=== PATIENT | male | born 1990 | race Caucasian/White ===

== ENCOUNTER 2021-07-13 17:12 | Emergency (ER) | payer BC, OTHER ==
[~2021-07-13] VITALS: Ht 177.8 cm; Wt 72.7 kg
[2021-07-13] MEDS ORDERED: NS 1,000 ML IV ONE (18:10)
[2021-07-13] MEDS ORDERED: levETIRAcetam INJection 1,000 MG in D5W 100 ML IV ONE (18:20)
[2021-07-13] MEDS ORDERED: KEPP1TAB2 PO (18:35)
[2021-07-13 18:44] LABS: BASO # 0.1 10^3/uL (0.0-0.2); BASO % 0.9 % (0.0-1.0); EOS # 0.4 10^3/uL (0.0-0.5); EOS % 2.8 % (0.0-3.0); HEMOGLOBIN 15.2 g/dl (13.5-17.5); LYMPH % 15.1 % (24.0-44.0); MEAN CORPUSCULAR HGB CONC 34.5 g/dl (32.0-36.5); MONO % 7.7 % (2.0-8.0); NEUTROPHILS # 9.6 10^3/uL (1.5-8.5); NEUTROPHILS % 72.3 % (36.0-66.0); PLATELET COUNT, AUTOMATED 271 10^3/uL (150-450); RED BLOOD COUNT 5.24 10^6/uL (4.30-6.10); WHITE BLOOD COUNT 13.3 10^3/uL (4.0-10.0)
[2021-07-13 19:05] LABS: BLOOD UREA NITROGEN 15 MG/DL (7-18); CALCIUM LEVEL 9.5 MG/DL (8.5-10.1); CARBON DIOXIDE LEVEL 26 MEQ/L (21-32); CHLORIDE LEVEL 106 MEQ/L (98-107); CREATININE FOR GFR 0.75 MG/DL (0.70-1.30); GLOMERULAR FILTRATION RATE > 60.0 (>60); GLUCOSE, FASTING 89 MG/DL (70-100); POTASSIUM SERUM 4.4 MEQ/L (3.5-5.1); SODIUM LEVEL 139 MEQ/L (136-145)
[2021-07-13 19:14] LABS: ALBUMIN 4.4 GM/DL (3.2-5.2); ALT/SGPT 61 U/L (12-78); BILIRUBIN,DIRECT 0.2 MG/DL (0.0-0.2); BILIRUBIN,TOTAL 0.7 MG/DL (0.2-1.0); ETHYL ALCOHOL (ETHANOL) < 0.003 % (0.000-0.010); TOTAL PROTEIN 7.2 GM/DL (6.4-8.2)
[2021-07-13 19:18] LABS: AMPHETAMINES LEVEL URINE NEGATIVE (NEGATIVE); BARBITURATES URINE NEGATIVE (NEGATIVE); BENZODIAZEPINES URINE NEGATIVE (NEGATIVE); CANNABINOIDS URINE NEGATIVE (NEGATIVE); COCAINE METABOLITE URINE NEGATIVE (NEGATIVE); METHADONE URINE NEGATIVE (NEGATIVE); OPIATES URINE NEGATIVE (NEGATIVE); PHENCYCLIDINE URINE NEGATIVE (NEGATIVE)
[2021-07-13 20:30] VITALS: BP 131/64
== END 2021-07-13 20:58 | disposition home or self-care (01) ==
LOC: M ED 17:12 → EDBD 17:12 → M ED 20:58
DX: G40.909 Epilepsy, unspecified, not intractable, without status epilepticus (principal); F17.200 Nicotine dependence, unspecified, uncomplicated; S02.2XXA Fracture of nasal bones, initial encounter for closed fracture; X58.XXXA Exposure to other specified factors, initial encounter; Y92.9 Unspecified place or not applicable; Y93.9 Activity, unspecified; Y99.9 Unspecified external cause status; Z88.2 Allergy status to sulfonamides
CPT/HCPCS: 70450; 70486; 80048; 80076; 80307; 82077; 83605; 85025; 87798; 93041; 94760; 96374; 99284; J1953